=== PATIENT | male | born 1970 | race Caucasian/White ===

== ENCOUNTER 2020-07-02 09:10 | Outpatient (CLI) | payer BC, OTHER, SELFPAY ==
[2020-07-02 10:01] LABS: Add Urine Microscopic? YES; Appearance Urine Clear (Clear); Bilirubin Urine Negative (Negative); Blood Urine Negative (Negative); Color Urine Straw (Yellow); Glucose Urine UA 3+ mg/dL (Negative); Ketones Urine Negative (Negative); Leukocyte Esterase Ur Negative LEU/UL (NEGATIVE); Mucus Urine Rare /lpf; Nitrate Urine Positive (Negative); Protein Urine Negative (Negative); Squamous Epithelial Cell Urine Rare /hpf (Few); Urobilinogen Urine Negative mg/dL (<2.0); WBC Urine 0-3 /hpf (0-3)
[2020-07-02 10:02] LABS: Specific Grav Ur 1.031 (1.001-1.035)
[2020-07-02 10:10] LABS: Cholesterol 180 mg/dL (0-200); HDL Direct 53 mg/dL; Triglycerides 204 mg/dL (<150)
[2020-07-02 10:22] LABS: LDL Cholesterol Direct 97 mg/dL
[2020-07-02 10:42] LABS: Prostate Specific Antigen 1.1 ng/mL (< OR = 4.0)
[2020-07-02 11:17] LABS: Folic Acid 12.6 ng/mL (2.76->20)
== END 2020-07-02 09:11 | disposition home or self-care (01) ==
PROVIDERS: PCP Family Medicine; Visit Provider Nurse Practitioner Family
DX: E78.5 Hyperlipidemia, unspecified (principal); I10 Essential (primary) hypertension; R53.83 Other fatigue
CPT/HCPCS: 36415; 80061; 81001; 82607; 82746; 84153; 84443; G0103

== ENCOUNTER 2020-07-12 11:05 | Outpatient (CLI) | payer BC, OTHER, SELFPAY ==
--- NOTE | ~2020-07-12 | US_ITS ---
EXAMINATION: US abdomen complete DATE: 07/12/2020 11:37 INDICATION: Left upper quadrant abdominal pain. TECHNIQUE: Multiple grayscale and Doppler ultrasound images of the abdomen were obtained. COMPARISON: CT dated 03/07/2019 FINDINGS: The pancreatic head and body are normal in appearance. The pancreatic tail is not visualized. Liver has normal contour, with a smooth surface. There is increased parenchymal echogenicity and coarsened echotexture consistent with diffuse hepatic steatosis. No liver lesion identified. No intrahepatic b iliary duct dilation suspected. Portal venous flow was seen in the hepatopetal, normal direction and has normal Doppler waveform. The gallbladder is normal in appearance. There is no cholelithiasis. Th e common bile duct measures 4 mm, which is normal. Sonographic Soria sign was reported as negative b y the non licensed operator. Visualized proximal inferior vena cava is normal. The proximal aorta is poorly vis ualized. There is normal renal contour and echogenicity bilaterally. The right kidney measures 11.5 x 6.1 x 6.6 cm and the left 11.8 x 6.8 x 5.8 cm. There are no focal renal lesions identified. There is no hydronephrosis. Spleen is normal measuring 10.9 cm in maximal length. Small mobile echogenic de nsity in the dependent bladder consistent with a small bladder stone. IMPRESSION: 1. Diffuse hepatic steatosis. 2. Small mobile stone in the bladder. Reviewed, dictated and finalized at location B. RAL PROCESSING TECHNICIAN
== END 2020-07-12 11:06 | disposition home or self-care (01) ==
PROVIDERS: PCP Family Medicine; Visit Provider Nurse Practitioner Family
DX: R10.12 Left upper quadrant pain (principal); K76.0 Fatty (change of) liver, not elsewhere classified; N21.0 Calculus in bladder
CPT/HCPCS: 76700

== ENCOUNTER 2020-07-19 11:21 | Outpatient (CLI) | payer BC, OTHER, SELFPAY ==
--- NOTE | ~2020-07-19 | XR_ITS ---
XR chest 2V DATE: 07/19/2020 11:35 INDICATION: Cough for one week TECHNIQUE: PA and lateral views COMPARISON: 09/02/2018 portable AP chest FINDINGS: Normal heart size. No hilar or mediastinal enlargement. No pulmonary infiltrate or consolid ation, pleural effusion or pulmonary vascular congestion or pneumothorax. IMPRESSION: No active cardiopulmonary disease Reviewed, dictated and finalized at location A. RIALS PLANNING ANALYST
== END 2020-07-19 11:22 | disposition home or self-care (01) ==
PROVIDERS: PCP Family Medicine; Visit Provider Nurse Practitioner Family
DX: R05 Cough (principal)
CPT/HCPCS: 71046